=== PATIENT | male | born 1995 | race Caucasian/White ===

== ENCOUNTER 2022-03-17 16:02 | Emergency (ER) | payer BC ==
[~2022-03-17] VITALS: Ht 182.9 cm; Wt 82.0 kg
[2022-03-17 16:21] VITALS: BP 128/80
[2022-03-17 19:55] LABS: CHLORIDE 107 mEq/L (98-107)
[2022-03-17] MEDS ORDERED: APIX5TAB MT (20:45)
== END 2022-03-17 21:17 | disposition home or self-care (01) ==
LOC: ER 16:02
DX: M79.89 Other specified soft tissue disorders (principal); Z98.890 Other specified postprocedural states
CPT/HCPCS: 36415; 80053; 93970; 99284